=== PATIENT | female | born 1955 | race Caucasian/White ===

== ENCOUNTER 2019-01-29 10:02 | Inpatient (IN) | payer MEDICARE, BC ==
[2019-01-29] MEDS ORDERED: VANCOMYCIN 1 GM (PMX) 250 ML IVPB (10:30)
[2019-01-29 10:55] LABS: ADD MAN DIFF? NO
[2019-01-29] MEDS: SODIUM CHLORIDE 0.9% 1L BAG IV* (11:04)
[2019-01-29 11:11] LABS: ALANINE AMINOTRANSFERASE 22 IU/L (13-69); ALBUMIN 3.7 g/dl (3.3-4.9); ALBUMIN/GLOBULIN RATIO 1.12; ALKALINE PHOSPHATASE 87 IU/L (42-121); ANION GAP 11 (5-13); ASPARTATE AMINO TRANSFERASE 22 IU/L (15-46); BILIRUBIN,INDIRECT 0.6 mg/dl (0-1.1); BILIRUBIN,TOTAL 0.6 mg/dl (0.2-1.3); BLOOD UREA NITROGEN 19 mg/dl (7-20); CALCIUM 8.7 mg/dl (8.4-10.2); CARBON DIOXIDE 25 mmol/L (21-31); CHLORIDE 107 mmol/L (97-110); CREATININE 0.41 mg/dl (0.44-1.00); Estimated GFR > 60 mL/min (>60); GLUCOSE 138 mg/dl (70-220); POTASSIUM 4.6 mmol/L (3.5-5.1); SODIUM 143 mmol/L (135-144)
[2019-01-29 11:15] LABS: INR 1.17; PARTIAL THROMBOPLASTIN TIME 20.8 Sec (23.0-35.0); PT RATIO 1.2
[2019-01-29 11:22] LABS: TROPONIN-I < 0.012 ng/ml (0.000-0.120)
[2019-01-29 11:51] LABS: ABNORMAL IP MESSAGE 1; BASOPHIL # 0.1 10^3/ul (0.0-0.1); BASOPHILS % 0.7 % (0.0-2.0); EOSINOPHILS # 0.3 10^3/ul (0.0-0.5); EOSINOPHILS % 2.8 % (0.0-7.0); HEMATOCRIT 35.3 % (37.0-47.0); HEMOGLOBIN 11.7 g/dl (12.0-16.0); LYMPHOCYTES # 1.4 10^3/ul (0.8-2.9); LYMPHOCYTES % 13.6 % (15.0-51.0); MEAN CORPUSCULAR HEMOGLOBIN 28.3 pg (29.0-33.0); MEAN CORPUSCULAR HGB CONC 33.1 g/dl (32.0-37.0); MEAN CORPUSCULAR VOLUME 85.5 fl (82.0-101.0); MEAN PLATELET VOLUME 13.1 fl (7.4-10.4); MONOCYTE # 1.3 10^3/ul (0.3-0.9); MONOCYTES % 12.3 % (0.0-11.0); NEUTROPHIL # 7.4 10^3/ul (1.6-7.5); NEUTROPHILS % 69.8 % (39.0-77.0); NUCLEATED RED BLOOD CELLS% 0.2 /100WBC (0.0-0.0); PLATELET COUNT 218 10^3/UL (140-415); RED BLOOD COUNT 4.13 10^6/ul (4.20-5.40); RED CELL DISTRIBUTION WIDTH 13.6 % (11.5-14.5)
[2019-01-29 11:51] LABS: WHITE BLOOD COUNT 10.6 10^3/ul (4.8-10.8)
[2019-01-29 11:53] LABS: POSITIVE DIFF @See below
[2019-01-29] MEDS: LEVOFLOXACIN 750MG/D5W (PMX) 150 ML IVPB (12:20)
[2019-01-29 12:38] LABS: ADD UMIC YES; UR ASCORBIC ACID NEGATIVE (NEGATIVE); UR BACTERIA FEW /HPF (NONE SEEN); UR BILIRUBIN (Dip) NEGATIVE (NEGATIVE); UR BLOOD (Dip) 3+ mg/dL (NEGATIVE); UR CLARITY CLOUDY (CLEAR); UR COLOR YELLOW (YELLOW); UR GLUCOSE (Dip) NEGATIVE (NEGATIVE); UR KETONES (Dip) NEGATIVE (NEGATIVE); UR LEUKOCYTE ESTERASE (Dip) 3+ Leu/ul (NEGATIVE); UR NITRITE (Dip) POSITIVE (NEGATIVE); UR RBC 146 /HPF (0-5); UR SPECIFIC GRAVITY (Dip) 1.011 (1.003-1.030); UR TOTAL PROTEIN (Dip) 2+ mg/dl (NEGATIVE); UR UROBILINOGEN (Dip) NEGATIVE (NEGATIVE); UR WBC 26 /HPF (0-5)
[2019-01-29 12:48] LABS: AADO2 Arterial 142.5 mmHg (7.0-24.0); Allen Test ACCEPTAB; Arterial Base Excess -0.7 mmol/L (-3.0-3); Arterial Blood Gas Oxygen Sat 97.4 mmHG (95.0-98.0); Arterial COHb 0.3 % (0.0-3.0); Arterial Fraction of Oxyhgb 96.8 % (93.0-99.0); Arterial HCO3 22.6 mmol/L (22.0-26.0); Arterial MetHb 0.3 % (0.0-1.5); Arterial pCO2 33.1 mmhg (35-45); MODE VENT - AC; Site Left Radial
[2019-01-29] MEDS ORDERED: HYPROMELLOSE OP (14:00)
[2019-01-29] MEDS ORDERED: [UNRECOGNIZED DRUG - OTHER] OP (14:00)
[2019-01-29] MEDS ORDERED: DEXTRAN OP (14:00)
[2019-01-29 14:01] LABS: LACTIC ACID 1.4 mmol/L (0.5-2.0)
[2019-01-29] MEDS: DILTIAZEM-D5W 125MG/125ML DRIP 125 ML IV (14:21)
[2019-01-29] MEDS ORDERED: IPRATROPIUM (HFA) 12.9 GM INHALER INH (15:00)
[2019-01-29] MEDS ORDERED: ONDANSETRON 4 MG INJ IV (15:00)
[2019-01-29 15:22] LABS: B-TYPE NATRIURETIC PEPTIDE 9110 PG/ML (0-125)
[2019-01-29] MEDS ORDERED: ARTIFICIAL TEARS 15 ML OPH BOTH EYES (18:30)
[2019-01-29] MEDS: LEVETIRACETAM (100 MG/ML) 5ML CUP GTB (18:31)
[2019-01-29] MEDS ORDERED: MEROPENEM 500MG/50 ML (PMX) 50 ML IVPB (21:00)
[2019-01-29] MEDS: IPRATROPIUM (HFA) 12.9 GM INHALER INH (21:00)
[2019-01-29] MEDS ORDERED: NON-FORMULARY/PATIENT OWN MED (Lovastatin* 10 MG) GTB (21:00)
[2019-01-29] MEDS ORDERED: FERROUS SULFATE 220 MG/5 ML ML GTB (21:00)
[2019-01-29] MEDS: FERROUS SULFATE 60 MG/ML 5ML CUP GTB (21:11)
[2019-01-29] MEDS: DOCUSATE SODIUM 10 MG/ML (10ML CUP) GTB (21:11)
[2019-01-29] MEDS: clonAZEPAM 0.5 MG TAB GTB (21:12)
[2019-01-29] MEDS: MELATONIN 5 MG TABLET GTB (21:12)
[2019-01-29] MEDS: ASCORBIC ACID 500 MG TAB GTB (21:12)
[2019-01-29] MEDS: ATORVASTATIN 10 MG TAB PO (21:12)
[2019-01-30] MEDS: METOPROLOL 5 MG INJ IV
[2019-01-30] MEDS: MAGNESIUM SULFATE 3 GM in DEXTROSE 5% 100 ML IVPB (00:19)
[2019-01-30] MEDS: IPRATROPIUM (HFA) 12.9 GM INHALER INH ×6 (01:18→21:37)
[2019-01-30] MEDS: DILTIAZEM-D5W 125MG/125ML DRIP 125 ML IV (01:50)
[2019-01-30] MEDS: LEVETIRACETAM (100 MG/ML) 5ML CUP GTB ×2 (01:52→14:34)
[2019-01-30] MEDS: AMIODARONE 900 MG in DEXTROSE 5% 482 ML IV (03:16)
[2019-01-30] MEDS: SOD CHLORIDE 0.9% 500 ML IV (03:39)
[2019-01-30 04:57] LABS: ADD MAN DIFF? NO
[2019-01-30 05:06] LABS: ABNORMAL IP MESSAGE 1; BASOPHILS % 0.8 % (0.0-2.0); EOSINOPHILS # 0.3 10^3/ul (0.0-0.5); EOSINOPHILS % 4.9 % (0.0-7.0); HEMATOCRIT 25.6 % (37.0-47.0); HEMOGLOBIN 8.5 g/dl (12.0-16.0); LYMPHOCYTES % 18.4 % (15.0-51.0); MEAN CORPUSCULAR HEMOGLOBIN 28.6 pg (29.0-33.0); MEAN CORPUSCULAR HGB CONC 33.2 g/dl (32.0-37.0); MEAN CORPUSCULAR VOLUME 86.2 fl (82.0-101.0); MEAN PLATELET VOLUME 13.2 fl (7.4-10.4); MONOCYTE # 0.9 10^3/ul (0.3-0.9); MONOCYTES % 16.7 % (0.0-11.0); NEUTROPHIL # 3.1 10^3/ul (1.6-7.5); NEUTROPHILS % 58.6 % (39.0-77.0); PLATELET COUNT 146 10^3/UL (140-415); RED BLOOD COUNT 2.97 10^6/ul (4.20-5.40); RED CELL DISTRIBUTION WIDTH 13.8 % (11.5-14.5)
[2019-01-30 05:06] LABS: WHITE BLOOD COUNT 5.3 10^3/ul (4.8-10.8)
[2019-01-30 05:22] LABS: POSITIVE DIFF @See below
[2019-01-30 05:24] LABS: ALBUMIN 1.8 g/dl (3.3-4.9); ANION GAP 5 (5-13); BLOOD UREA NITROGEN 9 mg/dl (7-20); CARBON DIOXIDE 17 mmol/L (21-31); CHLORIDE 123 mmol/L (97-110); CREATININE 0.27 mg/dl (0.44-1.00); GLUCOSE 110 mg/dl (70-220); PHOSPHORUS 2.2 mg/dl (2.5-4.9); SODIUM 145 mmol/L (135-144)
[2019-01-30 05:29] LABS: CALCIUM 4.8 mg/dl (8.4-10.2)
[2019-01-30] MEDS: LEVOTHYROXINE 100 MCG TAB GTB (06:11)
[2019-01-30] MEDS: POTASSIUM CHLORIDE 20 MEQ POWDER FOR ORAL SOLN GTB (06:12)
[2019-01-30] MEDS: POTASSIUM CHLORIDE 100 ML IVPB ×2 (06:12→10:29)
[2019-01-30] MEDS: FERROUS SULFATE 60 MG/ML 5ML CUP GTB ×2 (08:25→20:23)
[2019-01-30] MEDS: clonAZEPAM 0.5 MG TAB GTB ×2 (08:25→20:23)
[2019-01-30] MEDS: MULTIVITAMINS/MINERALS TAB PO (08:25)
[2019-01-30] MEDS: MAGNESIUM HYDROXIDE 30ML CUP GTB (08:25)
[2019-01-30] MEDS: ASCORBIC ACID 500 MG TAB GTB ×2 (08:25→20:24)
[2019-01-30] MEDS: CALCIUM GLUCONATE 10% 2 GM in DEXTROSE 5% 100 ML IVPB (08:25)
[2019-01-30] MEDS: APIXABAN 5 MG TABLET GTB (08:25)
[2019-01-30] MEDS ORDERED: NON-FORMULARY/PATIENT OWN MED (Multivit &Minerals/Ferrous Fum (Multivitamin Liquid) 5 ML) GTB (09:00)
[2019-01-30] MEDS: DILTIAZEM 25 MG INJ IV (10:26)
[2019-01-30] MEDS ORDERED: DILTIAZEM 25 MG INJ IV (10:30)
[2019-01-30] MEDS: LEVOFLOXACIN 750MG/D5W (PMX) 150 ML IVPB (13:31)
[2019-01-30 13:50] LABS: ANION GAP 8 (5-13); BLOOD UREA NITROGEN 15 mg/dl (7-20); CALCIUM 8.5 mg/dl (8.4-10.2); CARBON DIOXIDE 23 mmol/L (21-31); CHLORIDE 108 mmol/L (97-110); CREATININE 0.41 mg/dl (0.44-1.00); Estimated GFR > 60 mL/min (>60); GLUCOSE 185 mg/dl (70-220); SODIUM 139 mmol/L (135-144)
[2019-01-30] MEDS: FUROSEMIDE 40 MG INJ IV ×2 (15:42→21:48)
[2019-01-30] MEDS: LORAZEPAM 2 MG INJ IV (20:21)
[2019-01-30] MEDS: DOCUSATE SODIUM 10 MG/ML (10ML CUP) GTB (20:23)
[2019-01-30] MEDS: MELATONIN 5 MG TABLET GTB (20:24)
[2019-01-30] MEDS: ATORVASTATIN 10 MG TAB PO (20:24)
[2019-01-31] MEDS: AMIODARONE 900 MG in DEXTROSE 5% 482 ML IV (01:27)
[2019-01-31] MEDS: LEVETIRACETAM (100 MG/ML) 5ML CUP GTB ×2 (01:32→13:17)
[2019-01-31] MEDS: IPRATROPIUM (HFA) 12.9 GM INHALER INH ×6 (01:52→21:43)
[2019-01-31 05:24] LABS: ADD MAN DIFF? NO
[2019-01-31 05:30] LABS: BASOPHIL # 0.1 10^3/ul (0.0-0.1); BASOPHILS % 1.1 % (0.0-2.0); EOSINOPHILS # 0.3 10^3/ul (0.0-0.5); EOSINOPHILS % 5.1 % (0.0-7.0); HEMATOCRIT 30.8 % (37.0-47.0); HEMOGLOBIN 10.2 g/dl (12.0-16.0); LYMPHOCYTES # 1.3 10^3/ul (0.8-2.9); LYMPHOCYTES % 23.5 % (15.0-51.0); MEAN CORPUSCULAR HEMOGLOBIN 27.9 pg (29.0-33.0); MEAN CORPUSCULAR HGB CONC 33.1 g/dl (32.0-37.0); MEAN CORPUSCULAR VOLUME 84.4 fl (82.0-101.0); MEAN PLATELET VOLUME 12.9 fl (7.4-10.4); MONOCYTE # 0.8 10^3/ul (0.3-0.9); MONOCYTES % 14.5 % (0.0-11.0); NEUTROPHILS % 54.9 % (39.0-77.0); PLATELET COUNT 198 10^3/UL (140-415); RED BLOOD COUNT 3.65 10^6/ul (4.20-5.40); RED CELL DISTRIBUTION WIDTH 13.7 % (11.5-14.5)
[2019-01-31 05:30] LABS: WHITE BLOOD COUNT 5.4 10^3/ul (4.8-10.8)
[2019-01-31] MEDS: FUROSEMIDE 40 MG INJ IV ×2 (06:12→17:06)
[2019-01-31] MEDS: LEVOTHYROXINE 100 MCG TAB GTB (06:12)
[2019-01-31 06:18] LABS: ALBUMIN 2.9 g/dl (3.3-4.9); ANION GAP 8 (5-13); BLOOD UREA NITROGEN 14 mg/dl (7-20); CALCIUM 7.7 mg/dl (8.4-10.2); CARBON DIOXIDE 28 mmol/L (21-31); CHLORIDE 106 mmol/L (97-110); CREATININE 0.41 mg/dl (0.44-1.00); GLUCOSE 137 mg/dl (70-220); MAGNESIUM 2.1 mg/dl (1.7-2.5); PHOSPHORUS 3.1 mg/dl (2.5-4.9); POTASSIUM 3.1 mmol/L (3.5-5.1); SODIUM 142 mmol/L (135-144)
[2019-01-31] MEDS: POTASSIUM CHLORIDE 100 ML IVPB ×2 (07:59→12:15)
[2019-01-31] MEDS: MULTIVITAMINS/MINERALS TAB PO (08:01)
[2019-01-31] MEDS: FERROUS SULFATE 60 MG/ML 5ML CUP GTB ×2 (08:01→20:46)
[2019-01-31] MEDS: ASCORBIC ACID 500 MG TAB GTB ×2 (08:01→20:46)
[2019-01-31] MEDS: APIXABAN 5 MG TABLET GTB (08:01)
[2019-01-31] MEDS: MAGNESIUM HYDROXIDE 30ML CUP GTB (08:01)
[2019-01-31] MEDS: clonAZEPAM 0.5 MG TAB GTB ×2 (08:01→20:47)
[2019-01-31] MEDS: LISINOPRIL 5 MG TAB PO (08:02)
[2019-01-31] MEDS: LEVOFLOXACIN 750MG/D5W (PMX) 150 ML IVPB (10:26)
[2019-01-31] MEDS: AMIODARONE 200 MG TAB PO ×2 (11:16→20:47)
[2019-01-31] MEDS: POTASSIUM CHLORIDE 20 MEQ POWDER FOR ORAL SOLN NGT (11:16)
[2019-01-31] MEDS: PANTOPRAZOLE (EC) 40 MG TAB PO (12:15)
[2019-01-31] MEDS: DOCUSATE SODIUM 10 MG/ML (10ML CUP) GTB (20:46)
[2019-01-31] MEDS: MELATONIN 5 MG TABLET GTB (20:47)
[2019-01-31] MEDS: ATORVASTATIN 10 MG TAB PO (20:47)
[2019-02-01] MEDS: IPRATROPIUM (HFA) 12.9 GM INHALER INH ×5 (01:33→20:46)
[2019-02-01] MEDS: LEVETIRACETAM (100 MG/ML) 5ML CUP GTB ×2 (02:20→15:17)
[2019-02-01 05:23] LABS: ADD MAN DIFF? NO
[2019-02-01 05:28] LABS: BASOPHILS % 0.5 % (0.0-2.0); EOSINOPHILS # 0.3 10^3/ul (0.0-0.5); EOSINOPHILS % 4.5 % (0.0-7.0); HEMATOCRIT 31.4 % (37.0-47.0); HEMOGLOBIN 10.5 g/dl (12.0-16.0); LYMPHOCYTES # 1.2 10^3/ul (0.8-2.9); LYMPHOCYTES % 19.3 % (15.0-51.0); MEAN CORPUSCULAR HEMOGLOBIN 28.2 pg (29.0-33.0); MEAN CORPUSCULAR HGB CONC 33.4 g/dl (32.0-37.0); MEAN CORPUSCULAR VOLUME 84.4 fl (82.0-101.0); MEAN PLATELET VOLUME 12.6 fl (7.4-10.4); MONOCYTE # 0.9 10^3/ul (0.3-0.9); MONOCYTES % 14.9 % (0.0-11.0); NEUTROPHIL # 3.6 10^3/ul (1.6-7.5); NEUTROPHILS % 60.5 % (39.0-77.0); PLATELET COUNT 209 10^3/UL (140-415); RED BLOOD COUNT 3.72 10^6/ul (4.20-5.40); RED CELL DISTRIBUTION WIDTH 13.8 % (11.5-14.5)
[2019-02-01 05:50] LABS: ALBUMIN 3.1 g/dl (3.3-4.9); ANION GAP 9 (5-13); BLOOD UREA NITROGEN 12 mg/dl (7-20); CALCIUM 8.1 mg/dl (8.4-10.2); CARBON DIOXIDE 28 mmol/L (21-31); CHLORIDE 106 mmol/L (97-110); CREATININE 0.37 mg/dl (0.44-1.00); GLUCOSE 125 mg/dl (70-220); MAGNESIUM 2.2 mg/dl (1.7-2.5); PHOSPHORUS 3.5 mg/dl (2.5-4.9); POTASSIUM 3.4 mmol/L (3.5-5.1); SODIUM 143 mmol/L (135-144)
[2019-02-01] MEDS: FUROSEMIDE 40 MG INJ IV (06:32)
[2019-02-01] MEDS: PANTOPRAZOLE (EC) 40 MG TAB PO (06:32)
[2019-02-01] MEDS: LEVOTHYROXINE 100 MCG TAB GTB (06:32)
[2019-02-01] MEDS: POTASSIUM CHLORIDE 100 ML IVPB (06:56)
[2019-02-01] MEDS: ASCORBIC ACID 500 MG TAB GTB ×2 (09:03→20:35)
[2019-02-01] MEDS: FERROUS SULFATE 60 MG/ML 5ML CUP GTB ×2 (09:03→20:35)
[2019-02-01] MEDS: AMIODARONE 200 MG TAB PO ×2 (09:04→20:38)
[2019-02-01] MEDS: MULTIVITAMINS/MINERALS TAB PO (09:04)
[2019-02-01] MEDS: LISINOPRIL 5 MG TAB PO (09:05)
[2019-02-01] MEDS: APIXABAN 5 MG TABLET GTB (09:05)
[2019-02-01] MEDS: MAGNESIUM HYDROXIDE 30ML CUP GTB (09:09)
[2019-02-01] MEDS: clonAZEPAM 0.5 MG TAB GTB ×2 (09:09→20:35)
[2019-02-01] MEDS ORDERED: LORAZEPAM 2 MG INJ IV (10:42)
[2019-02-01] MEDS ORDERED: VALPROATE INJ 1,000 MG in SOD CHLORIDE 0.9% 100 ML IVPB (10:42)
[2019-02-01] MEDS ORDERED: LEVETIRACETAM 1500 MG (PMX) 100 ML IVPB (10:42)
[2019-02-01] MEDS: LEVOFLOXACIN 750MG/D5W (PMX) 150 ML IVPB (11:32)
[2019-02-01] MEDS: CEFTRIAXONE 1 GM/50 ML (PMX) 50 ML IVPB (12:00)
[2019-02-01] MEDS: MELATONIN 5 MG TABLET GTB (20:35)
[2019-02-01] MEDS: DOCUSATE SODIUM 10 MG/ML (10ML CUP) GTB (20:35)
[2019-02-01] MEDS: ATORVASTATIN 10 MG TAB PO (20:38)
[2019-02-02] MEDS: IPRATROPIUM (HFA) 12.9 GM INHALER INH ×6 (01:31→21:11)
[2019-02-02] MEDS: LEVETIRACETAM (100 MG/ML) 5ML CUP GTB ×2 (01:50→14:38)
[2019-02-02] MEDS: PANTOPRAZOLE (EC) 40 MG TAB PO (05:11)
[2019-02-02 06:07] LABS: ADD MAN DIFF? NO
[2019-02-02 06:09] LABS: BASOPHIL # 0.1 10^3/ul (0.0-0.1); EOSINOPHILS # 0.3 10^3/ul (0.0-0.5); EOSINOPHILS % 5.5 % (0.0-7.0); HEMATOCRIT 32.9 % (37.0-47.0); LYMPHOCYTES # 1.2 10^3/ul (0.8-2.9); LYMPHOCYTES % 20.3 % (15.0-51.0); MEAN CORPUSCULAR HEMOGLOBIN 28.4 pg (29.0-33.0); MEAN CORPUSCULAR HGB CONC 33.4 g/dl (32.0-37.0); MEAN PLATELET VOLUME 12.4 fl (7.4-10.4); MONOCYTE # 0.9 10^3/ul (0.3-0.9); MONOCYTES % 15.2 % (0.0-11.0); NEUTROPHIL # 3.5 10^3/ul (1.6-7.5); NEUTROPHILS % 57.7 % (39.0-77.0); PLATELET COUNT 198 10^3/UL (140-415); RED BLOOD COUNT 3.87 10^6/ul (4.20-5.40); RED CELL DISTRIBUTION WIDTH 14.2 % (11.5-14.5)
[2019-02-02 06:09] LABS: WHITE BLOOD COUNT 6.1 10^3/ul (4.8-10.8)
[2019-02-02] MEDS: LEVOTHYROXINE 100 MCG TAB GTB (06:19)
[2019-02-02 06:39] LABS: ANION GAP 9 (5-13); BLOOD UREA NITROGEN 10 mg/dl (7-20); CALCIUM 8.5 mg/dl (8.4-10.2); CARBON DIOXIDE 25 mmol/L (21-31); CHLORIDE 107 mmol/L (97-110); CREATININE 0.36 mg/dl (0.44-1.00); Estimated GFR > 60 mL/min (>60); GLUCOSE 145 mg/dl (70-220); MAGNESIUM 2.4 mg/dl (1.7-2.5); POTASSIUM 3.5 mmol/L (3.5-5.1); SODIUM 141 mmol/L (135-144)
[2019-02-02] MEDS: LIDOCAINE 1% (MPF) 5 ML VIAL (08:55)
[2019-02-02 09:53] LABS: FLUID GLUCOSE 119 mg/dl; FLUID LD 408 U/L; FLUID TOTAL PROTEIN 4.2 g/dl; FLUID TYPE THORACENTESIS FLUID
[2019-02-02 09:59] LABS: FLD MN% 85.8 %; FLD PMN% 14.2 %; FLD RBC 7000 /uL; FLD WBC 451 /cmm
[2019-02-02 10:33] LABS: FLD TYPE THORACENTHESIS
[2019-02-02 10:34] LABS: FLD CLARITY CLOUDY; FLD COLOR YELLOW
[2019-02-02] MEDS: ASCORBIC ACID 500 MG TAB GTB ×2 (10:51→20:47)
[2019-02-02] MEDS: AMIODARONE 200 MG TAB PO ×2 (10:51→20:47)
[2019-02-02] MEDS: LISINOPRIL 5 MG TAB PO (10:51)
[2019-02-02] MEDS: FERROUS SULFATE 60 MG/ML 5ML CUP GTB ×2 (10:52→20:47)
[2019-02-02] MEDS: APIXABAN 5 MG TABLET GTB (10:52)
[2019-02-02] MEDS: FUROSEMIDE 40 MG TAB NGT (10:52)
[2019-02-02] MEDS: MULTIVITAMINS/MINERALS TAB PO (10:52)
[2019-02-02] MEDS: MAGNESIUM HYDROXIDE 30ML CUP GTB (10:53)
[2019-02-02] MEDS: clonAZEPAM 0.5 MG TAB GTB ×2 (10:57→20:51)
[2019-02-02] MEDS: POTASSIUM CHLORIDE 20 MEQ POWDER FOR ORAL SOLN NGT (10:57)
[2019-02-02] MEDS: ACETAMINOPHEN 325 MG TAB GTB (10:57)
[2019-02-02] MEDS: CEFTRIAXONE 1 GM/50 ML (PMX) 50 ML IVPB (12:38)
[2019-02-02] MEDS: DOCUSATE SODIUM 10 MG/ML (10ML CUP) GTB (20:47)
[2019-02-02] MEDS: MELATONIN 5 MG TABLET GTB (20:47)
[2019-02-02] MEDS: ATORVASTATIN 10 MG TAB PO (20:47)
[2019-02-03] MEDS: IPRATROPIUM (HFA) 12.9 GM INHALER INH ×6 (01:19→21:13)
[2019-02-03] MEDS: LEVETIRACETAM (100 MG/ML) 5ML CUP GTB ×2 (03:27→14:16)
[2019-02-03] MEDS: PANTOPRAZOLE (EC) 40 MG TAB PO (05:51)
[2019-02-03] MEDS: LEVOTHYROXINE 100 MCG TAB GTB (06:04)
[2019-02-03] MEDS: FERROUS SULFATE 60 MG/ML 5ML CUP GTB ×2 (09:06→22:29)
[2019-02-03] MEDS: clonAZEPAM 0.5 MG TAB GTB ×2 (09:06→22:30)
[2019-02-03] MEDS: MAGNESIUM HYDROXIDE 30ML CUP GTB (09:06)
[2019-02-03] MEDS: APIXABAN 5 MG TABLET GTB (09:07)
[2019-02-03] MEDS: ASCORBIC ACID 500 MG TAB GTB ×2 (09:07→22:32)
[2019-02-03] MEDS: AMIODARONE 200 MG TAB PO ×2 (09:07→22:30)
[2019-02-03] MEDS: FUROSEMIDE 40 MG TAB NGT (09:07)
[2019-02-03] MEDS: MULTIVITAMINS/MINERALS TAB PO (09:07)
[2019-02-03] MEDS: LISINOPRIL 5 MG TAB PO (09:10)
[2019-02-03] MEDS: CEFTRIAXONE 1 GM/50 ML (PMX) 50 ML IVPB (13:01)
[2019-02-03] MEDS: DOCUSATE SODIUM 10 MG/ML (10ML CUP) GTB (22:29)
[2019-02-03] MEDS: ACETAMINOPHEN 325 MG TAB GTB (22:31)
[2019-02-03] MEDS: MELATONIN 5 MG TABLET GTB (22:32)
[2019-02-03] MEDS: ATORVASTATIN 10 MG TAB PO (22:32)
[2019-02-04] MEDS: IPRATROPIUM (HFA) 12.9 GM INHALER INH ×6 (01:57→21:36)
[2019-02-04] MEDS: LEVETIRACETAM (100 MG/ML) 5ML CUP GTB ×2 (02:04→14:42)
[2019-02-04] MEDS: LEVOTHYROXINE 100 MCG TAB GTB (05:46)
[2019-02-04] MEDS: PANTOPRAZOLE (EC) 40 MG TAB PO (05:47)
[2019-02-04 06:29] LABS: ADD MAN DIFF? NO
[2019-02-04 06:35] LABS: BASOPHIL # 0.1 10^3/ul (0.0-0.1); BASOPHILS % 0.9 % (0.0-2.0); EOSINOPHILS # 0.3 10^3/ul (0.0-0.5); EOSINOPHILS % 5.3 % (0.0-7.0); HEMATOCRIT 33.6 % (37.0-47.0); HEMOGLOBIN 11.4 g/dl (12.0-16.0); MEAN CORPUSCULAR HEMOGLOBIN 28.6 pg (29.0-33.0); MEAN CORPUSCULAR HGB CONC 33.9 g/dl (32.0-37.0); MEAN CORPUSCULAR VOLUME 84.4 fl (82.0-101.0); MEAN PLATELET VOLUME 12.1 fl (7.4-10.4); MONOCYTE # 0.9 10^3/ul (0.3-0.9); MONOCYTES % 16.9 % (0.0-11.0); NEUTROPHIL # 3.2 10^3/ul (1.6-7.5); NEUTROPHILS % 58.4 % (39.0-77.0); PLATELET COUNT 198 10^3/UL (140-415); RED BLOOD COUNT 3.98 10^6/ul (4.20-5.40)
[2019-02-04 06:35] LABS: WHITE BLOOD COUNT 5.5 10^3/ul (4.8-10.8)
[2019-02-04 07:00] LABS: ANION GAP 9 (5-13); BLOOD UREA NITROGEN 13 mg/dl (7-20); CALCIUM 8.5 mg/dl (8.4-10.2); CARBON DIOXIDE 25 mmol/L (21-31); CHLORIDE 109 mmol/L (97-110); CREATININE 0.36 mg/dl (0.44-1.00); Estimated GFR > 60 mL/min (>60); GLUCOSE 100 mg/dl (70-220); MAGNESIUM 2.4 mg/dl (1.7-2.5); PHOSPHORUS 3.8 mg/dl (2.5-4.9); POTASSIUM 3.7 mmol/L (3.5-5.1); SODIUM 143 mmol/L (135-144)
[2019-02-04] MEDS: clonAZEPAM 0.5 MG TAB GTB ×2 (08:59→21:26)
[2019-02-04] MEDS: ASCORBIC ACID 500 MG TAB GTB ×2 (08:59→21:27)
[2019-02-04] MEDS: AMIODARONE 200 MG TAB PO ×2 (08:59→21:25)
[2019-02-04] MEDS: FERROUS SULFATE 60 MG/ML 5ML CUP GTB ×2 (08:59→21:24)
[2019-02-04] MEDS: MULTIVITAMINS/MINERALS TAB PO (09:00)
[2019-02-04] MEDS: LISINOPRIL 5 MG TAB PO (09:00)
[2019-02-04] MEDS: APIXABAN 5 MG TABLET GTB (09:00)
[2019-02-04] MEDS: MAGNESIUM HYDROXIDE 30ML CUP GTB (09:00)
[2019-02-04] MEDS: FUROSEMIDE 40 MG TAB NGT (09:00)
[2019-02-04] MEDS: CEFTRIAXONE 1 GM/50 ML (PMX) 50 ML IVPB (12:06)
[2019-02-04] MEDS: DOCUSATE SODIUM 10 MG/ML (10ML CUP) GTB (21:24)
[2019-02-04] MEDS: ATORVASTATIN 10 MG TAB PO (21:27)
[2019-02-04] MEDS: MELATONIN 5 MG TABLET GTB (21:31)
[2019-02-05] MEDS: IPRATROPIUM (HFA) 12.9 GM INHALER INH ×6 (01:31→19:45)
[2019-02-05] MEDS: LEVETIRACETAM (100 MG/ML) 5ML CUP GTB ×2 (02:23→13:47)
[2019-02-05] MEDS: LEVOTHYROXINE 100 MCG TAB GTB (05:17)
[2019-02-05] MEDS: PANTOPRAZOLE (EC) 40 MG TAB PO (05:17)
[2019-02-05 06:35] LABS: ADD MAN DIFF? NO
[2019-02-05 06:39] LABS: BASOPHIL # 0.1 10^3/ul (0.0-0.1); BASOPHILS % 0.8 % (0.0-2.0); EOSINOPHILS # 0.3 10^3/ul (0.0-0.5); EOSINOPHILS % 4.8 % (0.0-7.0); HEMATOCRIT 35.7 % (37.0-47.0); HEMOGLOBIN 12.1 g/dl (12.0-16.0); LYMPHOCYTES # 1.1 10^3/ul (0.8-2.9); LYMPHOCYTES % 17.9 % (15.0-51.0); MEAN CORPUSCULAR HEMOGLOBIN 28.3 pg (29.0-33.0); MEAN CORPUSCULAR HGB CONC 33.9 g/dl (32.0-37.0); MEAN CORPUSCULAR VOLUME 83.6 fl (82.0-101.0); MEAN PLATELET VOLUME 11.9 fl (7.4-10.4); MONOCYTE # 0.9 10^3/ul (0.3-0.9); MONOCYTES % 15.6 % (0.0-11.0); NEUTROPHIL # 3.6 10^3/ul (1.6-7.5); NEUTROPHILS % 60.4 % (39.0-77.0); PLATELET COUNT 202 10^3/UL (140-415); RED BLOOD COUNT 4.27 10^6/ul (4.20-5.40); RED CELL DISTRIBUTION WIDTH 14.2 % (11.5-14.5)
[2019-02-05 07:40] LABS: ANION GAP 8 (5-13); BLOOD UREA NITROGEN 13 mg/dl (7-20); CALCIUM 8.8 mg/dl (8.4-10.2); CARBON DIOXIDE 28 mmol/L (21-31); CHLORIDE 106 mmol/L (97-110); CREATININE 0.36 mg/dl (0.44-1.00); Estimated GFR > 60 mL/min (>60); GLUCOSE 111 mg/dl (70-220); MAGNESIUM 2.2 mg/dl (1.7-2.5); POTASSIUM 3.8 mmol/L (3.5-5.1); SODIUM 142 mmol/L (135-144)
[2019-02-05 09:09] LABS: PHOSPHORUS 4.2 mg/dl (2.5-4.9)
[2019-02-05] MEDS: APIXABAN 5 MG TABLET GTB (10:15)
[2019-02-05] MEDS: FERROUS SULFATE 60 MG/ML 5ML CUP GTB ×2 (10:15→20:50)
[2019-02-05] MEDS: MULTIVITAMINS/MINERALS TAB PO (10:15)
[2019-02-05] MEDS: ASCORBIC ACID 500 MG TAB GTB ×2 (10:15→20:52)
[2019-02-05] MEDS: clonAZEPAM 0.5 MG TAB GTB ×2 (10:15→20:54)
[2019-02-05] MEDS: MAGNESIUM HYDROXIDE 30ML CUP GTB (10:15)
[2019-02-05] MEDS: FUROSEMIDE 40 MG TAB NGT (10:21)
[2019-02-05] MEDS: AMIODARONE 200 MG TAB PO ×2 (10:22→20:53)
[2019-02-05] MEDS: LISINOPRIL 5 MG TAB PO (10:22)
[2019-02-05] MEDS: DOCUSATE SODIUM 10 MG/ML (10ML CUP) GTB (20:50)
[2019-02-05] MEDS: MELATONIN 5 MG TABLET GTB (20:52)
[2019-02-05] MEDS: ATORVASTATIN 10 MG TAB PO (20:52)
== END 2019-02-05 22:20 | DRG 207 ==
LOC: TEL 02-01 10:36 → E/R 10:02 → ICU 13:25
PROVIDERS: Internal Medicine
PROC: 5A1955Z Respiratory Ventilation, Greater than 96 Consecutive Hours (ICD-10-PCS; principal; 2019-01-29)
PROC: 0W993ZZ Drainage of Right Pleural Cavity, Percutaneous Approach (ICD-10-PCS; 2019-02-02)
DX: J96.21 Acute and chronic respiratory failure with hypoxia (principal); I50.33 Acute on chronic diastolic (congestive) heart failure; Z99.11 Dependence on respirator [ventilator] status; N39.0 Urinary tract infection, site not specified; G93.49 Other encephalopathy; I69.954 Hemiplegia and hemiparesis following unspecified cerebrovascular disease affecting left non-dominant side; I42.9 Cardiomyopathy, unspecified; R40.3 Persistent vegetative state; J90 Pleural effusion, not elsewhere classified; I48.0 Paroxysmal atrial fibrillation; Z79.01 Long term (current) use of anticoagulants; E11.8 Type 2 diabetes mellitus with unspecified complications; I25.10 Atherosclerotic heart disease of native coronary artery without angina pectoris; G40.909 Epilepsy, unspecified, not intractable, without status epilepticus; Z85.3 Personal history of malignant neoplasm of breast; Z90.12 Acquired absence of left breast and nipple; I11.0 Hypertensive heart disease with heart failure; E03.9 Hypothyroidism, unspecified; K21.9 Gastro-esophageal reflux disease without esophagitis; R13.10 Dysphagia, unspecified; Z93.1 Gastrostomy status; Z93.0 Tracheostomy status; I69.998 Other sequelae following unspecified cerebrovascular disease; Z74.01 Bed confinement status; Z86.74 Personal history of sudden cardiac arrest; R33.8 Other retention of urine; F95.9 Tic disorder, unspecified
CPT/HCPCS: 36415; 36600; 70450; 71045; 76942; 80048; 80053; 80069; 81001; 82803; 82945; 83036; 83605; 83615; 83735; 83880; 84100; 84157; 84443; 84484; 85025; 85610; 85730; 87040-91; 87070; 87075; 87081; 87086; 87102; 87116; 88104; 88305; 89051; 93005; 93306; 94002; 94003; 94640; 94664; 96374; 97163; 99285-25